=== PATIENT | female | born 1950 | race Caucasian/White ===

== ENCOUNTER → 2016-12-02 | Outpatient (CLI) | payer OTHER, MEDICARE | LOC: MMPC 11:11 | PROVIDERS: ATTEND Internal Medicine | DX: E11.9 Type 2 diabetes mellitus without complications (principal); I10 Essential (primary) hypertension; R91.8 Other nonspecific abnormal finding of lung field; D89.9 Disorder involving the immune mechanism, unspecified; E66.9 Obesity, unspecified; Z94.4 Liver transplant status | CPT/HCPCS: 99213; G0463 ==

== ENCOUNTER → 2016-12-09 | Outpatient (CLI) | payer OTHER, MEDICARE | LOC: MMPC 09:32 | PROVIDERS: ATTEND Internal Medicine | DX: E11.9 Type 2 diabetes mellitus without complications (principal); I10 Essential (primary) hypertension | CPT/HCPCS: G0108 ==

== ENCOUNTER → 2016-12-24 | Outpatient (CLI) | payer OTHER, MEDICARE ==
[2016-12-24 08:41] LABS: BASOPHILS # (AUTO) 0.02 10*3/UL; BASOPHILS % (AUTO) 0.4 % (0-1); EOSINOPHILS # (AUTO) 0.06 10*3/UL; EOSINOPHILS % (AUTO) 1.2 % (0-8); HEMATOCRIT 40.8 % (37.0-47.0); HEMOGLOBIN 13.5 g/dL (12.0-16.0); LYMPHOCYTES # (AUTO) 1.29 10*3/uL; MEAN CORPUSCULAR HEMOGLOBIN 26.7 PG (27-31); MEAN CORPUSCULAR HGB CONC 33.1 g/dL (33-37); MEAN CORPUSCULAR VOLUME 80.6 FL (81-99); MEAN PLATELET VOLUME 9.3 FL (7.4-12.2); MONOCYTES # (AUTO) 0.27 10*3/UL (0.3-0.8); MONOCYTES % (AUTO) 5.4 % (5-15); NEUTROPHILS # (AUTO) 3.37 10*3/UL; RED BLOOD COUNT 5.06 10^6/uL (4.20-5.40)
[2016-12-24 08:56] LABS: HEMOGLOBIN A1C 6.92 % (4.2-6.0)
[2016-12-24 10:29] LABS: PLATELET MORPHOLOGY COMMENT NORMAL MORPHOLOGY (NORM); RBC MORPHOLOGY COMMENT NORMAL MORPHOLOGY (NORM); WBC MORPHOLOGY COMMENT NORMAL MORPHOLOGY (NORM)
[2016-12-24 10:57] LABS: CREATININE,URINE 51.3
[2016-12-24 14:28] LABS: CALCIUM 10.2 mg/dL (8.7-10.7); CHOL/HDL RATIO 5.97 RATIO (0-4.0); LDL CHOLESTEROL,CALCULATED 182.4 mg/dL; MAGNESIUM 1.8 mg/dL (1.6-2.4); PHOSPHORUS 3.6 mg/dl (2.4-4.3); SERUM ALBUMIN 4.2 g/dL (3.5-4.8)
[2016-12-25 14:28] LABS: 24 HOUR URINE TOTAL VOLUME 2850 ML
== END ==
LOC: LAB 08:09
PROVIDERS: ATTEND Internal Medicine Gastroenterology
DX: K74.69 Other cirrhosis of liver (principal); E11.9 Type 2 diabetes mellitus without complications; Z79.4 Long term (current) use of insulin; I10 Essential (primary) hypertension; D89.9 Disorder involving the immune mechanism, unspecified; R91.8 Other nonspecific abnormal finding of lung field; Z94.4 Liver transplant status
CPT/HCPCS: 36415; 80048; 80061; 80076; 80195; 80197; 82306; 82575; 82947; 82977; 83036; 83735; 84100; 84156; 84681; 85025; 85610

== ENCOUNTER → 2017-01-22 | Outpatient (CLI) | payer OTHER, MEDICARE | LOC: MMPC 09:10 | PROVIDERS: ATTEND Internal Medicine | DX: E11.9 Type 2 diabetes mellitus without complications (principal); I10 Essential (primary) hypertension; Z94.4 Liver transplant status; Z71.3 Dietary counseling and surveillance | CPT/HCPCS: G0108 ==

== ENCOUNTER → 2017-02-04 | Outpatient (CLI) | payer OTHER, MEDICARE ==
[2017-02-04 07:45] LABS: HEMATOCRIT 39.7 % (37.0-47.0); HEMOGLOBIN 13.1 g/dL (12.0-16.0); MEAN CORPUSCULAR HEMOGLOBIN 26.8 PG (27-31); MEAN CORPUSCULAR VOLUME 81.4 FL (81-99); MEAN PLATELET VOLUME 9.5 FL (7.4-12.2); RED BLOOD COUNT 4.88 10^6/uL (4.20-5.40)
[2017-02-04 08:23] LABS: BUN/CREATININE RATIO 20.83 (6-20); CALCIUM 10.1 mg/dL (8.7-10.7); MAGNESIUM 1.5 mg/dL (1.6-2.4); PHOSPHORUS 3.6 mg/dl (2.4-4.3); SERUM ALBUMIN 4.1 g/dL (3.5-4.8)
[2017-02-08 09:01] LABS: SIROLIMUS 3.8 ng/mL (())
== END ==
LOC: LAB 07:27
DX: Z48.23 Encounter for aftercare following liver transplant (principal); Z94.4 Liver transplant status; Z79.899 Other long term (current) drug therapy
CPT/HCPCS: 36415; 80048; 80076; 80195; 80197; 82977; 83735; 84100; 85027; 85610

== ENCOUNTER → 2017-03-10 | Outpatient (CLI) | payer OTHER, MEDICARE ==
[2017-03-10 16:29] LABS: BUN/CREATININE RATIO 16.36 (6-20); CALCIUM 9.3 mg/dL (8.7-10.7); MAGNESIUM 1.8 mg/dL (1.6-2.4); SERUM ALBUMIN 4.2 g/dL (3.5-4.8)
== END ==
LOC: MOB LAB 14:51
PROVIDERS: ATTEND Internal Medicine
DX: E11.9 Type 2 diabetes mellitus without complications (principal); Z79.4 Long term (current) use of insulin; E83.42 Hypomagnesemia; E87.8 Other disorders of electrolyte and fluid balance, not elsewhere classified; I10 Essential (primary) hypertension; R91.8 Other nonspecific abnormal finding of lung field; E66.9 Obesity, unspecified; Z68.37 Body mass index [BMI] 37.0-37.9, adult; Z94.4 Liver transplant status
CPT/HCPCS: 36415; 80048; 80076; 83735; 99213; G0463

== ENCOUNTER → 2017-03-24 | Outpatient (CLI) | payer OTHER, MEDICARE | LOC: MMPC 09:00 | PROVIDERS: ATTEND Internal Medicine | DX: E11.9 Type 2 diabetes mellitus without complications (principal); I10 Essential (primary) hypertension; Z94.4 Liver transplant status; Z71.3 Dietary counseling and surveillance | CPT/HCPCS: G0108 ==

== ENCOUNTER → 2017-04-14 | Outpatient (CLI) | payer OTHER, MEDICARE ==
[2017-04-14 08:14] LABS: RED BLOOD COUNT 4.91 10^6/uL (4.20-5.40)
[2017-04-14 08:15] LABS: HEMATOCRIT 39.4 % (37.0-47.0); HEMOGLOBIN 13.1 g/dL (12.0-16.0); MEAN CORPUSCULAR HEMOGLOBIN 26.7 PG (27-31); MEAN CORPUSCULAR HGB CONC 33.2 g/dL (33-37); MEAN CORPUSCULAR VOLUME 80.2 FL (81-99); MEAN PLATELET VOLUME 9.5 FL (7.4-12.2)
[2017-04-14 08:24] LABS: BUN/CREATININE RATIO 21.81 (6-20); CALCIUM 9.5 mg/dL (8.7-10.7); MAGNESIUM 1.8 mg/dL (1.6-2.4); SERUM ALBUMIN 4.2 g/dL (3.5-4.8)
[2017-04-19 08:07] LABS: SIROLIMUS 4.4 ng/mL (())
== END ==
LOC: LAB 07:55
PROVIDERS: ATTEND Internal Medicine Gastroenterology
DX: Z48.298 Encounter for aftercare following other organ transplant (principal); Z94.4 Liver transplant status; Z79.899 Other long term (current) drug therapy
CPT/HCPCS: 36415; 80048; 80076; 80195; 80197; 82977; 83735; 84100; 85027; 85610

== ENCOUNTER 2017-05-08 10:19 | Inpatient (IN) ==
[2017-05-08] MEDS ORDERED: ONDANSETRON 4 MG/2 ML VIAL IVP PRN (12:14)
[2017-05-08] MEDS ORDERED: NORMAL SALINE 10 ML SYRINGE FLUSH IVP PRN (12:14)
[2017-05-08] MEDS ORDERED: LIDOCAINE W/ SODIUM BICARB 0.5 ML SYR SUBD PRN (12:14)
[2017-05-08] MEDS: Pantoprazole Inj 40 MG in Normal Saline Flush 10 ML IVP SCH (12:48)
[2017-05-08] MEDS: Sodium Chloride 0.9% 1,000 ML PRIMARY IV SCH ×2 (12:48→22:26)
--- NOTE | 2017-05-08 12:53 | PDOC ---
History and Physical - History of Present Illness Date and Time of Service: 05/08/2017 1 PM Chief Complaint: Recent urinary symptoms with dysuria and frequency and fatigue and melena History of Present Illness: This is a 66 years old female with medical history significant being status post liver transplant done in December 2014 at [facility] for hepatitis C cirrhosis and hepatocellular cancer, diabetes on insulin, hypertension, hypercholesterolemia, status post lap band surgery who said last Thursday she started to have symptoms of dysuria, frequency and some lower abdominal discomfort on Thursday. She took 4 pills of Cipro that she had from before, she took it for 2 days and the symptoms started to improve then she did have diarrhea and she described as black in color. She had another bowel movement the last time was 2 days ago and was also dark black in color. She's not feeling well, somewhat lightheaded and fatigued and because of that she went to the urgent care clinic. She did have some blood test her Hemoglobin was 12.2, BUN was elevated at 37 and creatinine was also elevated at 1.4 in addition she was guaiac positive so I was called and patient was admitted. She did admit to some mild nausea but no vomiting. She Didn't check her temperature but she said she felt warm. No chest pain, no abdominal pain currently no dysuria no shortness of breath. She is on daily aspirin for prevention. Past Medical History Medical History: 1. Status post liver transplant December 2014 secondary to hepatitis C and hepatocellular cancer. 2. Hepatitis C was treated posttransplant plantation with HARVONI and she cleared the infection. 3. Diabetes was on oral hypoglycemic then she switched to insulin posttransplant. 4. History of colonic polyp removal Surgical History: 1. Status post lap band surgery. 2. Status post hysterectomy for fibroid uterus. 3. Status post liver transplant for hepatitis C cirrhosis and liver cancer Pertinent Family History: Father from colon cancer. Father and mother had diabetes Tobacco Use: Former Smoker Substance Use Type: None Alcohol Use: None Medication / Allergies Home Medications: Home Medications Medication Instructions Recorded Confirmed Type Aspirin [Aspir 81] 81 mg PO DAILY 03/21/14 05/08/17 History Multivitamin [Daily Katina] 1 tab PO DAILY tab 01/16/16 05/08/17 History Blood-Glucose Control, Normal 1 each QID #150 each 01/25/16 05/08/17 Clinic [Onetouch Verio] Lancets [Onetouch Delica] 1 each QID #100 each 06/23/16 05/08/17 Clinic Lisinopril 1 tab-cap PO QAM #90 tab-cap 09/12/16 05/08/17 [facility] [place], Insulin Disposable [Bd 1 each QID #4 box 09/12/16 05/08/17 Clinic Ultra-Fine Pen Needle] Sirolimus [Rapamune] 1 tab PO DAILY #90 tab 02/13/17 05/08/17 Clinic Pravastatin Sodium 1 tab-cap PO DAILY #90 tab-cap 02/20/17 05/08/17 [facility] Insulin Lispro Flexpen Inj 9 unit SUBCUT AC #3 box 03/10/17 05/08/17 Clinic [Humalog Flexpen Inj] Tacrolimus Anhydrous [Tacrolimus] 2 tab-cap PO BID #360 cap 03/10/17 05/08/17 [facility] Insulin NPH Human Isophane 20 unit SUBCUT BID #3 vial 03/24/17 05/08/17 Clinic [Novolin N] Metoprolol Tartrate 1.5 tab-cap PO BID #270 tab-cap 05/01/17 05/08/17 Clinic Allergies/Adverse Reactions: Allergies Allergy/AdvReac Type Severity Reaction Status Date / Time nitrofurantoin Allergy ITCHING Verified 05/08/17 12:16 [From Macrobid] nitrofurantoin Allergy ITCHING Verified 05/08/17 12:16 macrocrystalline [From Macrobid] Penicillins Allergy ITCHING Verified 05/08/17 12:16 Sulfa (Sulfonamide Allergy ITCHING Verified 05/08/17 12:16 Antibiotics) Review of Systems - Review of Systems All Systems: Reviewed & No Additional Complaints Except as Stated Exam - Vitals Vital Signs: Vital Signs Height 5 ft 6 in Weight 229 lb 9.6 oz - General General Appearance: POSITIVE: No Acute Distress, Obese - Head Head Exam: POSITIVE: Normal Inspection, Atraumatic - Eye Eye Exam: POSITIVE: Normal Appearance - ENT ENT Exam: POSITIVE: Normal Exam - Neck Neck Exam: POSITIVE: Normal Inspection - Respiratory Respiratory Exam: POSITIVE: Clear to Auscultation - Bilaterally - Cardiovascular Cardiovascular Exam: POSITIVE: RRR - GI/Abdominal GI/Abdominal Exam: POSITIVE: Normal Bowel Sounds, Non Tender, Non Distended, Soft Additional GI/Abdominal Exam Details: Scar of previous operation noted - Rectal Rectal Exam: POSITIVE: Deferred - External Exam: POSITIVE: Deferred - Extremities Extremities Exam: POSITIVE: Normal Inspection - Back Back Exam: POSITIVE: Normal Inspection - Neurological Neurological Exam: POSITIVE: Alert, Oriented x 3, CN II-XII Intact, Speech Intact / Clear, Moves All Extremities Equally - Psychiatric Psychiatric Exam: POSITIVE: Normal Affect Assessment and Plan - Patient Problems (1) Melena Current Visit: Yes Status: Acute Comment: Patient gives a history of melena plus she was guaiac positive based on the test done in the urgent clinic. We'll DC her aspirin, put her on Protonix and I did speak with the turpentine distiller at [facility] Dr Florin Canales and she agreed with the plan of scopes. I did speak with Dr. Yun and he knows about her. We'll recheck her hemoglobin. Will put her on IV fluids. (2) Acute renal failure Current Visit: Yes Status: Acute Comment: Probably prerenal with IV Fluids and Repeat Her Labs Tomorrow. Will Hold Her Lisinopril (3) Hypertension Current Visit: Yes Status: Chronic Comment: Continue metoprolol will hold off on lisinopril for now (4) Diabetes Current Visit: Yes Status: Chronic Comment: Continue same medications (5) Status post liver transplant Current Visit: Yes Status: Acute Comment: Continue her antirejection medications
[2017-05-08] MEDS: Metoprolol TARTRATE Tab 25 MG TAB PO SCH ×2 (14:18→19:59)
--- NOTE | 2017-05-08 14:54 | CONSULT ---
Consult Note - Consult Consult Date: 05/08/17 Reason for Consult: PreOp Consulation : General Surgery Requesting Physician: Dr. Al Primary Care Provider: Georgina Hadley MD - History of Present Illness History of Present Illness: This is 60-year-old female who states that she started having dark stools. She came in with pain little bit low blood pressure and weak. She states that she has never knows any blood but was Hemoccult positive stools in the clinic. Hemoglobin is stable at 12.8. Patient is in both had a lap band and a liver transplant. The transplant was 2 years ago. Patient had a colonoscopy right before the liver transplant which she tells me was unremarkable. Past Medical History Medical History: 1. Status post liver transplant December 2014 secondary to hepatitis C and hepatocellular cancer. 2. Hepatitis C was treated posttransplant plantation with HARVONI and she cleared the infection. 3. Diabetes was on oral hypoglycemic then she switched to insulin posttransplant. 4. History of colonic polyp removal Surgical History: 1. Status post lap band surgery. 2. Status post hysterectomy for fibroid uterus. 3. Status post liver transplant for hepatitis C cirrhosis and liver cancer Pertinent Family History: Father from colon cancer. Father and mother had diabetes Tobacco Use: Former Smoker Substance Use Type: None Alcohol Use: None Medication / Allergies Home Medications: Home Medications Medication Instructions Recorded Confirmed Type Aspirin [Aspir 81] 81 mg PO DAILY 03/21/14 05/08/17 History Multivitamin [Daily Katina] 1 tab PO DAILY tab 01/16/16 05/08/17 History Blood-Glucose Control, Normal 1 each QID #150 each 01/25/16 05/08/17 Clinic [Onetouch Verio] Lancets [Onetouch Delica] 1 each QID #100 each 06/23/16 05/08/17 Clinic Lisinopril 1 tab-cap PO QAM #90 tab-cap 09/12/16 05/08/17 [facility] [place], Insulin Disposable [Bd 1 each QID #4 box 09/12/16 05/08/17 Clinic Ultra-Fine Pen Needle] Sirolimus [Rapamune] 1 tab PO DAILY #90 tab 02/13/17 05/08/17 Clinic Pravastatin Sodium 1 tab-cap PO DAILY #90 tab-cap 02/20/17 05/08/17 Clinic Insulin Lispro Flexpen Inj 9 unit SUBCUT AC #3 box 03/10/17 05/08/17 Clinic [Humalog Flexpen Inj] Tacrolimus Anhydrous [Tacrolimus] 2 tab-cap PO BID #360 cap 03/10/17 05/08/17 Clinic Insulin NPH Human Isophane 20 unit SUBCUT BID #3 vial 03/24/17 05/08/17 Clinic [Novolin N] Metoprolol Tartrate 1.5 tab-cap PO BID #270 tab-cap 05/01/17 05/08/17 Clinic Allergies/Adverse Reactions: Allergies Allergy/AdvReac Type Severity Reaction Status Date / Time nitrofurantoin Allergy ITCHING Verified 05/08/17 12:16 [From Macrobid] nitrofurantoin Allergy ITCHING Verified 05/08/17 12:16 macrocrystalline [From Macrobid] Penicillins Allergy ITCHING Verified 05/08/17 12:16 Sulfa (Sulfonamide Allergy ITCHING Verified 05/08/17 12:16 Antibiotics) Exam - Vitals Vital Signs: Vital Signs Temperature 97.4 F Temperature Source Temporal Artery Scan Pulse Rate [Pulse Oximeter] 97 Respiratory Rate 16 Blood Pressure [Left Arm] 169/79 Pulse Ox 95 Oxygen Delivery Method Room Air Height 5 ft 6 in Weight 104.145 kg - General General Appearance: POSITIVE: No Acute Distress - Eye Eye Exam: POSITIVE: PERRL, EOMI - Neck Neck Exam: POSITIVE: Full ROM - Respiratory Respiratory Exam: POSITIVE: Clear to Auscultation - Bilaterally, Breathing Non Labored - Cardiovascular Cardiovascular Exam: POSITIVE: RRR - GI/Abdominal GI/Abdominal Exam: POSITIVE: Normal Bowel Sounds, Non Tender, Non Distended, Soft Assessment and Plan - Assessment / Plan Additional Assessment/Plan Details: Would recommend the patient have an EGD. The risk and potential complications of the procedure were discussed with the patient.. They understood this. Also discussed alternatives diagnostic and treatment options. Will get the EGD set up at the first available date.
[2017-05-08] MEDS ORDERED: Lactated Ringers 1,000 ML PRIMARY IV SCH (15:45)
[2017-05-08] MEDS ORDERED: fentaNYL Inj 100 MCG/2 ML VIAL ONE (16:00)
[2017-05-08] MEDS ORDERED: MIDAZOLAM 5 MG/1 ML ONE (16:00)
--- NOTE | 2017-05-08 16:31 | GEN.OPNOTE ---
EGD Operative Note Surgery Date: 05/08/17 Preoperative Diagnosis: Gastrointestinal hemorrhage. History of the lap band Postoperative Diagnosis: Normal upper EGD Procedure: Esophagogastroduodenoscopy Surgeon: Cj Yun MD Anesthesia Provider: Jaun Marc CRNA Anesthesia Type: MAC Indications: This 66-year-old female who is status post liver transplant 2 years ago who comes up with dark stools that are Hemoccult positive. Patient is BUN is slightly elevated at 33. Patient had a normal colonoscopy 2 years ago Findings: Esophagus: There has been EGD scopes and posterior pharynx. Getting esophagus under direct visualization. Patient normal-appearing esophagus. No ulcers no esophagitis seen. GE Junction : GE junction proximal 42 cm from incisors Fundus : Scope retroflexed on itself revealing normal-appearing fundus. There really was not the narrowing I would expect the lap band the stomach was fully dilated Body : Body the stomach is within normal limits. I do not see any narrowing consistent with the lap band Prepyloric : Prepyloric area area was free from disease no ulcers masses or tumors Small Intestine : First second third portion of duodenum. Be normal. Ampulla appeared to be normal. There is good bile comes in the ampulla Vater. No ulcers tumors or cancer seen A lubricated flexible upper endoscope was inserted and passed through the esophagus and stomach into the duodenum.
[2017-05-08] MEDS: Insulin Lispro Flexpen 300 UNIT/3 ML INSULN.PEN SUBCUT SCH (16:54)
[2017-05-08 18:39] LABS: Hematocrit [HCT] 32.3 % (37.0-47.0); Hemoglobin [HGB] 10.8 g/dL (12.0-16.0)
[2017-05-08] MEDS ORDERED: INSULIN NPH HUMAN ISOPHANE 20 UNIT SUBCUT SCH (21:00)
[2017-05-08] MEDS ORDERED: TACROLIMUS 1 MG PO SCH ×3 (21:00)
[2017-05-08] MEDS ORDERED: Pravastatin Tab 20 MG TAB PO SCH (21:00)
[2017-05-09] MEDS: Pantoprazole Inj 40 MG in Normal Saline Flush 10 ML IVP SCH ×2 (01:30→12:45)
[2017-05-09 01:34] VITALS: RESP 18
[2017-05-09 05:09] LABS: BASOPHILS # (AUTO) 0.01 10*3/UL; BASOPHILS % (AUTO) 0.4 % (0-1); EOSINOPHILS # (AUTO) 0.22 10*3/UL; EOSINOPHILS % (AUTO) 8.1 % (0-8); Hematocrit [HCT] 31.8 % (37.0-47.0); Hemoglobin [HGB] 10.4 g/dL (12.0-16.0); MEAN CORPUSCULAR HEMOGLOBIN 26.1 PG (27-31); MEAN CORPUSCULAR HGB CONC 32.7 g/dL (33-37); MEAN CORPUSCULAR VOLUME 79.7 FL (81-99); MEAN PLATELET VOLUME 10.5 FL (7.4-12.2); MONOCYTES # (AUTO) 0.21 10*3/UL (0.3-0.8); MONOCYTES % (AUTO) 7.7 % (5-15); NEUTROPHILS # (AUTO) 1.85 10*3/UL; NEUTROPHILS % (AUTO) 68.3 % (50-80); RED BLOOD COUNT 3.99 10^6/uL (4.20-5.40)
[2017-05-09 05:16] LABS: PLATELET MORPHOLOGY COMMENT NORMAL MORPHOLOGY (NORM); RBC MORPHOLOGY COMMENT NORMAL MORPHOLOGY (NORM); WBC MORPHOLOGY COMMENT NORMAL MORPHOLOGY (NORM)
[2017-05-09 05:20] LABS: BUN/CREATININE RATIO 21.66 (6-20); SERUM ALBUMIN 2.7 g/dL (3.5-4.8)
[2017-05-09] MEDS: Sodium Chloride 0.9% 1,000 ML PRIMARY IV SCH (05:35)
[2017-05-09] MEDS: Insulin Lispro Flexpen 300 UNIT/3 ML INSULN.PEN SUBCUT SCH ×2 (08:03→11:31)
[2017-05-09] MEDS: Metoprolol TARTRATE Tab 25 MG TAB PO SCH (08:45)
[2017-05-09] MEDS ORDERED: TACROLIMUS 1 MG PO SCH (09:00)
[2017-05-09] MEDS ORDERED: SIROLIMUS 2 MG PO SCH (09:00)
[2017-05-09 11:12] VITALS: TEMP 98.1
--- NOTE | 2017-05-09 13:07 | DCSUMMARY ---
Hospitalization Summary Admit Date: 05/08/17 Discharge Date: 05/09/17 Primary Diagnosis:: melena, resolved Hospital Course: This very pleasant 66-year-old female with diabetes mellitus type II, history of a liver transplant, and she presented with bloody stool. She had an EGD which was negative. It was recommended by gastroenterology that the patient could have colonoscopy as an outpatient although she had one 2 years ago, and a CTA could be considered, but the patient had an creatinine at 1.4. It's down to 1.2, and I think this was related to nausea and vomiting in the setting of a recent urinary tract infection for which the patient has already treated with Cipro. She is at her baseline creatinine now. Further workup for this can be done as an outpatient and the patient denies any further blood in her stool, black or tarry stool, nausea or vomiting, abdominal pain, chest pain or shortness of breath. I talked to the patient about potentially switching over to [facility] liver transplant team or even [facility] liver transplant team in [place], [place]. I think this is the patient's decision, and it would makes more sense that she's here in [place] for the long-term. As patient has no further symptoms, I am going to hold off on CT scan at this time and have her hold off on her MECHE inhibitor for the next week. Given that, we will have the patient discuss this further with her primary doctor, Dr. Hadley. Assessment and Plan: 1. As per discharge assessments noted 2. Disposition: Patient is discharged home. 3. Condition on discharge, stable and improved. 4. Diet: regular diet 5. Activities: resume normal activities 6. Follow-Up: 1. Dr. Hadley within 7 days. 2. 7. Medications at the Time of Discharge: Home Medications Medication Instructions Recorded Confirmed Type Aspirin [Aspir 81] 81 mg PO DAILY 03/21/14 05/08/17 History Multivitamin [Daily Katina] 1 tab PO DAILY tab 01/16/16 05/08/17 History Blood-Glucose Control, Normal 1 each QID #150 each 01/25/16 05/08/17 Clinic [Onetouch Verio] Lancets [Onetouch Delica] 1 each QID #100 each 06/23/16 05/08/17 Clinic Lisinopril 1 tab-cap PO QAM #90 tab-cap 09/12/16 05/08/17 [facility] [place], Insulin Disposable [Bd 1 each MC QID #4 box 09/12/16 05/08/17 Clinic Ultra-Fine Pen Needle] Sirolimus [Rapamune] 1 tab PO DAILY #90 tab 02/13/17 05/08/17 [facility] Pravastatin Sodium 1 tab-cap PO DAILY #90 tab-cap 02/20/17 05/08/17 [facility] Insulin Lispro Flexpen Inj 9 unit SUBCUT AC #3 box 03/10/17 05/08/17 Clinic [HumaLOG Flexpen Inj] Tacrolimus Anhydrous [Tacrolimus] 2 tab-cap PO BID #360 cap 03/10/17 05/08/17 [facility] Insulin NPH Human Isophane 20 unit SUBCUT BID #3 vial 03/24/17 05/08/17 Clinic [Novolin N] Metoprolol Tartrate 1.5 tab-cap PO BID #270 tab-cap 05/01/17 05/08/17 Clinic 8. Time, care, counseling and coordination of care for this discharge is greater than 30 minutes. Exam - Vitals Vital Signs: Vital Signs Temperature 98.1 F Temperature Source Temporal Artery Scan Pulse Rate [Pulse Oximeter] 67 Pulse Rate 70 Respiratory Rate 18 Blood Pressure [Left Arm] 130/50 Blood Pressure 148/76 Pulse Ox 96 Oxygen Flow Rate she is on room air. Oxygen Delivery Method Room Air Height 5 ft 6 in Weight 233 lb 12.8 oz - General General Appearance: POSITIVE: No Acute Distress, Cooperative - Head Head Exam: POSITIVE: Normal Inspection, Normocephalic, Atraumatic - Eye Eye Exam: POSITIVE: No Scleral Icterus - ENT ENT Exam: POSITIVE: Mucous Membranes Moist - Respiratory Respiratory Exam: POSITIVE: Clear to Auscultation - Bilaterally, Breathing Non Labored - Cardiovascular Cardiovascular Exam: POSITIVE: RRR, No Murmur, No Clicks, No Gallops, No Rubs, No JVD - GI/Abdominal GI/Abdominal Exam: POSITIVE: Normal Bowel Sounds, Non Tender, Non Distended, Soft - Extremities Extremities Exam: POSITIVE: No Clubbing Present, No Edema Present, No Cyanosis Present - Neurological Neurological Exam: POSITIVE: Alert, Oriented x 3, No Facial Droop, Speech Intact / Clear, Moves All Extremities Equally Data Perinent Studies: Laboratory Results 05/08/17 05/08/17 05/09/17 Range/Units 18:00 18:40 04:45 WBC 2.71 L (4.8-10.8) 10^3/uL RBC 3.99 L (4.20-5.40) 10^6/uL Hgb 10.8 L 10.4 L (12.0-16.0) g/dL Hct 32.3 L 31.8 L (37.0-47.0) % MCV 79.7 L (81-99) FL MCH 26.1 L (27-31) PG MCHC 32.7 L (33-37) g/dL RDW Std Deviation 40.1 (39-50) fL RDW Coeff of Altaf 14.1 (11.5-14.5) % Plt Count 159 (140-350) 10*3/uL MPV 10.5 (7.4-12.2) FL Immature Gran % (Auto) 0.7 (0-5) % Neut % (Auto) 68.3 (50-80) % Lymph % (Auto) 14.8 (10-50) % [place] % (Auto) 7.7 (5-15) % Eos % (Auto) 8.1 H (0-8) % Baso % (Auto) 0.4 (0-1) % Immature Gran # (Auto) 0.02 10*3/UL Neut # (Auto) 1.85 10*3/UL Lymph # (Auto) 0.40 10*3/uL [place] # (Auto) 0.21 L (0.3-0.8) 10*3/UL Eos # (Auto) 0.22 10*3/UL Baso # (Auto) 0.01 10*3/UL WBC Morphology Comment Normal morphology (NORM) Plt Morphology Comment Normal morphology (NORM) RBC Morph Comment Normal morphology (NORM) Sodium 140 (135-145) meq/L Potassium 4.3 (3.8-5.2) meq/L Chloride 111 (98-112) meq/L Carbon Dioxide 22 L (23-33) meq/L Anion Gap 7 (5-20) BUN 26 H (7-22) mg/dL Creatinine 1.2 (0.50-1.20) mg/dL Estimated GFR 45 (>60 ml/min/1.73m(2)) BUN/Creatinine Ratio 21.66 H (6-20) Glucose 137 H (78-110) mg/dL Calculated Osmolality 296.0 H (267-292) mOsm/kg Calcium 8.5 L (8.7-10.7) mg/dL Total Bilirubin 0.4 (0.3-1.2) mg/dL AST 65 H (8-39) IU/L ALT 67 H (9-52) IU/L Alkaline Phosphatase 49 (38-126) IU/L Total Protein 5.4 L (6.1-8.0) g/dL Albumin 2.7 L (3.5-4.8) g/dL Globulin 2.7 (2.50-4.10) g/dL Albumin/Globulin Ratio 1.00 L (1.3-2.0) mg/g Blood Type A POSITIVE Antibody Screen Negative Patient Problems - Patient Problem List (1) Melena Current Visit: Yes Status: Acute (2) Status post liver transplant Current Visit: Yes Status: Acute (3) Hypertension Current Visit: Yes Status: Chronic Qualifiers: Hypertension type: essential hypertension Qualified Description: Essential hypertension Qualifier Code(s): (I10) Essential (primary) hypertension (4) Acute renal failure Current Visit: Yes Status: Resolved Qualifiers: Acute renal failure type: unspecified Qualified Description: Acute renal failure, unspecified acute renal failure type Qualifier Code(s): ( N17.9) Acute kidney failure, unspecified
[2017-05-09] MEDS ORDERED: TACROLIMUS ANHYDROUS 1 MG PO SCH (20:00)
[2017-05-10] MEDS ORDERED: SIROLIMUS 2 MG PO SCH (08:00)
== END 2017-05-09 13:54 | disposition home or self-care (01) | DRG 379 ==
LOC: MED/SURG 11:00 → OPS 15:51 → MED/SURG 16:38
PROVIDERS: ADMIT Internal Medicine; ATTEND Internal Medicine

== ENCOUNTER → 2017-05-08 | Outpatient (CLI) | payer OTHER, MEDICARE ==
[2017-05-08 09:42] LABS: BASOPHILS # (AUTO) 0.04 10*3/UL; BASOPHILS % (AUTO) 0.9 % (0-1); EOSINOPHILS # (AUTO) 0.32 10*3/UL; EOSINOPHILS % (AUTO) 6.8 % (0-8); HEMATOCRIT 36.3 % (37.0-47.0); HEMOGLOBIN 12.2 g/dL (12.0-16.0); LYMPHOCYTES # (AUTO) 0.56 10*3/uL; MEAN CORPUSCULAR HEMOGLOBIN 26.5 PG (27-31); MEAN CORPUSCULAR HGB CONC 33.6 g/dL (33-37); MEAN CORPUSCULAR VOLUME 78.7 FL (81-99); MEAN PLATELET VOLUME 10.5 FL (7.4-12.2); MONOCYTES # (AUTO) 0.21 10*3/UL (0.3-0.8); MONOCYTES % (AUTO) 4.5 % (5-15); NEUTROPHILS # (AUTO) 3.54 10*3/UL; NEUTROPHILS % (AUTO) 75.5 % (50-80); RED BLOOD COUNT 4.61 10^6/uL (4.20-5.40)
[2017-05-08 09:56] LABS: BUN/CREATININE RATIO 26.42 (6-20); C-REACTIVE PROTEIN 3.9 mg/dL (0.0-0.9); CALCIUM 9.4 mg/dL (8.7-10.7); SERUM ALBUMIN 3.5 g/dL (3.5-4.8)
[2017-05-08 10:02] LABS: PLATELET MORPHOLOGY COMMENT NORMAL MORPHOLOGY (NORM); RBC MORPHOLOGY COMMENT NORMAL MORPHOLOGY (NORM); WBC MORPHOLOGY COMMENT NORMAL MORPHOLOGY (NORM)
[2017-05-08 10:24] LABS: HEMOGLOBIN A1C 7.39 % (4.2-6.0)
== END ==
LOC: MOB LAB 09:13
PROVIDERS: ATTEND Physician Assistant
DX: E11.9 Type 2 diabetes mellitus without complications (principal); Z79.4 Long term (current) use of insulin; R79.89 Other specified abnormal findings of blood chemistry; R63.5 Abnormal weight gain; R60.1 Generalized edema; R94.5 Abnormal results of liver function studies; Z94.4 Liver transplant status
CPT/HCPCS: 36415; 80053; 83036; 85025; 86140